=== PATIENT | female | born 1960 | race Caucasian/White ===

== ENCOUNTER 2019-11-23 08:30 | Day surgery (SDC) | payer OTHER, BC ==
[2019-11-19 11:24] VITALS: BMI 27.3
[2019-11-23] MEDS ORDERED: MIDAZOLAM HCL 2 MG/2 ML SINGLE DOSE VIAL ONE (13:41)
[2019-11-23] MEDS ORDERED: THROMBIN (BOVINE) 5,000 UNIT VIAL TP ONE (14:06)
[2019-11-23] MEDS ORDERED: HEPARIN NA (PORCINE) 5,000 UNITS/ML 1ML VIAL ONE (14:06)
[2019-11-23] MEDS ORDERED: ROCURONIUM BROMIDE 50 MG/5 ML SYRINGE ONE (14:29)
[2019-11-23] MEDS ORDERED: fentaNYL CITRATE 250 MCG/5 ML VIAL ONE (14:29)
[2019-11-23] MEDS ORDERED: PROPOFOL 20 ML ONE ×6 (14:29→16:13)
[2019-11-23] MEDS ORDERED: SUCCINYLCHOLINE CHLORIDE 200 MG/10 ML SYRINGE ONE (14:29)
[2019-11-23] MEDS ORDERED: LIDOCAINE HCL/PF 2% SDV 5ML VIAL ONE ×2 (14:36→15:27)
[2019-11-23] MEDS ORDERED: ceFAZolin SODIUM 1 GM VIAL IVPB ONE ×2 (15:00→20:04)
[2019-11-23] MEDS ORDERED: VANCOMYCIN 1,000 MG VIAL (RESTRICTED TO ID ONLY) IVPB ONE (15:00)
[2019-11-23] MEDS ORDERED: LIDOCAINE HCL 2% JELLY (5 ML/TUBE) ONE (15:27)
[2019-11-23] MEDS ORDERED: ceFAZolin SODIUM 1 GM VIAL ONE ×2 (15:27→19:24)
[2019-11-23] MEDS ORDERED: TRANEXAMIC ACID 1000 MG/10 ML VIAL ONE (15:27)
[2019-11-23] MEDS ORDERED: DEXAMETHASONE SOD PHOSPHATE 4 MG/1 ML VIAL ONE (15:27)
[2019-11-23] MEDS ORDERED: GLYCOPYRROLATE 0.2 MG/1 ML VIAL ONE (15:27)
[2019-11-23] MEDS ORDERED: VANCOMYCIN 1,000 MG VIAL (RESTRICTED TO ID ONLY) ONE (15:27)
[2019-11-23] MEDS ORDERED: BUPIVACAINE LIPOSOME/PF (EXPAREL) 266 MG/20 ML VIAL ONE (15:52)
[2019-11-23] MEDS ORDERED: oxyCODONE HCL 5 MG TABLET PO PRN (16:48)
[2019-11-23] MEDS ORDERED: diazePAM CARPU-JECT 10 MG/2 ML DISP.SYRIN IVPUSH PRN (16:48)
[2019-11-23] MEDS ORDERED: ONDANSETRON 4 MG/2 ML VIAL IVPUSH PRN ×2 (16:48→17:26)
[2019-11-23] MEDS ORDERED: LACTATED RINGERS SOLUTION 1,000 ML IV SCH (17:00)
--- NOTE | 2019-11-23 17:03 | PN ---
Progress Note (short form) - Note Progress Note: 59F s/p removal of proximal thoracic hardware, & inspection of fusion mass POD #0. -Pain control: patient received intra-op paraspinal muscle block w/Exparel & marcaine; OK to use GAME MANAGER if needed; transition to oral analgesia; NSAID's OK. -DVT PPx: -Mechanical only: NICOLÁS's, SCD's. -Chemical: None. -Incentive spirometry q15 min. -Diet as tolerated. -f/u post-op TOV (8 hours max). -Ancef post-op x 3 doses. -PT/OT/Rehab, OOB. -WBAT B/L LE. -Care per medical hospitalist teams. -Discharge planning: f/u 7-10 days after rehab (or hospital) discharge [facility]; call for appointment; . -Will follow. Chun Brown MD (Orthopaedic Surgery).
--- NOTE | 2019-11-23 17:10 | OP ---
Operative Note - Note: Operative Date: 11/23/19 Pre-Operative Diagnosis: Thoracic hardware bursitis Operation: Removal of thoracic hardware. Inspection of fusion mass Post-Operative Diagnosis: Same as Pre-op Surgeon: Chun Brown Lands Resource Manager: Joseluis Brown Anesthesiologist/TALENT COORDINATOR: May Olivier Anesthesia: General Specimens Removed: Proximal thoracic cross link & trimmed rods Estimated Blood Loss (mls): 20 Fluid Volume Replaced (mls): 1,000 (Crystalloid) Operative Report Dictated: Yes
[2019-11-23] MEDS ORDERED: MEPERIDINE HCL 25 MG/ML VIAL ONE (17:35)
[2019-11-23] MEDS ORDERED: MEPERIDINE HCL 25 MG/ML VIAL IVPUSH ONE ×2 (17:38→17:40)
[2019-11-23] MEDS ORDERED: ACETAMINOPHEN INJECTION 100 ML IVPB ONE (17:48)
[2019-11-23] MEDS: ACETAMINOPHEN 1000 MG/100 ML VIAL (NON FORMULARY) IVPB SCH (17:54)
[2019-11-23] MEDS ORDERED: KETOROLAC TROMETHAMINE 30 MG/1 ML VIAL IVPUSH PRN (18:00)
--- NOTE | 2019-11-23 18:27 | OP ---
Date of Operation: 11/23/2019 Pre-Operative Diagnosis: Thoracic spine hardware bursitis. Post-Operative Diagnosis: Thoracic spine hardware bursitis. Procedure Performed: 1. Removal of proximal thoracic hardware. (51823) 2. Inspection of fusion mass. (26401) 3. Complex wound closure, 4 layers, 10cm. (35009 x 2) Surgeon: Chun Brown M.D. Take Away Attendant: Joseluis Brown M.D. Anesthesiologist: May Olivier M.D. Anesthesia: General, Local. Position: Prone. Incision: Midline. Specimens Removed: Proximal thoracic hardware (crosslink, trimmed rods). Drains: 1 x suprafascial HemoVac. Estimated Blood Loss: 20cc. Intravenous Fluid: 1L crystalloid. Transfusions: None. Complications: None. Bacteriology: None. Closure: No. 1 Vicryl, 2-0 Biosyn absorbable sutures. Indications: The patient was indicated for the above listed surgical procedure due to intractable proximal thoracic back pain that limits her mobility and capacity to independently perform routine activities of daily living. The patient was identified in the holding area by her armband. A long discussion was held with the patient regarding the risks, benefits and alternatives of the above-named procedure. The risks include, but are not limited to: pain, bleeding, infection, damage to surrounding structures (including nerves, blood vessels, skin, ligaments, tendons, and bone), nerve palsy, paresthesias, weakness, limp, wound complications, pseudarthrosis, failure of fusion, failure of hardware/implants/reduction, need for further surgery, blood clots, myocardial infarction, pulmonary embolism, cerebrovascular event, anesthesia complications, neurological injury, loss of function, and . Benefits as mentioned above. Alternatives include no surgery. All questions were answered. The patient understood and agreed to the procedure. Informed consent was obtained, witnessed and verified by hospital nursing staff. The patients lumbar spine was marked. The patient was then assessed by the anesthesia team and then taken to the operating room. Procedure: The patient was brought into the operating room. Consent and the operative site were again verified with the patient, the nursing team, the surgical team, and the anesthesiology team. Anesthesia, IV antibiotics, and TXA were then administered without complication. A time out was done, led by me the attending surgeon. An indwelling Wheeler catheter was successfully inserted by the nursing team. The intra-operative neuromonitoring team provided prepositioning baseline motor and sensory readings. The patient was then safely placed in a prone position with all bony prominences well-padded on a Driss frame. The arms were placed on well-padded arm boards and maintained with standard forward flexion, abduction, and external rotation of the shoulders, and flexion of the elbows. Special attention was given to the safe positioning of the cervical spine. The patients eyes, breasts, and belly were all free. The table was placed in 6 degrees of reverse Trendelenburg position to avoid ophthalmic vein congestion. Post-positional motor and sensory readings confirmed no change. No fluoroscopy was used. The skin was prepped in standard, sterile fashion using betadine prep & scrub, wiped off with alcohol, and DuraPrep applied. Standard window draping was utilized, and this included draping of the C-arm. All pre-operative imaging was available throughout the case for intraoperative evaluation. A time-out was repeated, and the case began. The prominent thoracic hardware was localized via palpation. The proximal 10cm of the original midline skin incision was utilized. Using electrocautery, the dissection was carried down through subcutaneous fat and then through the midline of the thoracodorsal fascia down to the prominent hardware. The dissection was carried over a proximal crosslink, which was clearly the most prominent hardware. This crosslink was then successfully removed. The bursal tissue that had formed over the crosslink was excised. The two most proximal thoracic screws were identified. These screws were not prominent. The rods that each of these screws captured were long, as they previously accommodated the now removed crosslink. Each of the rods was trimmed using bolt cutters, leaving 0.5-1cm of david proximal to each of the proximal screws. Screw capture of each david was well maintained. David holding clamps were used to grasp each of the rods and demonstrate the segmental stability of the previously fused proximal thoracic levels. This completed the inspection of the fusion mass. The skin was gently approximated, with no evidence of prominent hardware. Throughout the case, the wound was irrigated with warm normal saline solution to keep the exposed soft tissues hydrated. The retractors were released every 5 minutes to enable adequate blood flow to the soft tissues. These muscles were gently massaged upon release of the retractors to further facilitate blood flow. The local subcutaneous soft tissues were infiltrated with 40cc of analgesic medication (20cc 0.25% marcaine with 20cc Exparel). Closure: The thoracodorsal fascia and underlying paraspinal musculature was closed in the midline using #1 vicryl sutures in simple interrupted fashion. Hemostasis was well maintained, so no drain was used. The wound was repeatedly thoroughly irrigated with normal saline solution. The subcutaneous tissues were closed using #1 Vicryl sutures. The skin was closed using a running 2-0 Biosyn absorbable suture. This completed a 4-layered complex wound closure of approximately 10cm. The skin was then painted with benzoin and Steri-Strips were applied without tension perpendicularly to the incision. A Primapore adhesive Telfa island dressing was applied over the Steri-Strips and a sterile, compressive dressing was applied using 4x4 gauze pads. The skin was painted with DuraPrep. The wound was then sealed with adhesive Ioban. The sponge and needle counts were correct at the end of the case and I, the attending surgeon, was present and scrubbed throughout the case. All neural monitoring leads were removed. The patient was transferred to a hospital bed. The patient was then transferred to the recovery room in stable condition, as per the anesthesia team, having tolerated the procedure well. Overall comment: Operation went extremely well with no complications. All appropriate goals were achieved in this operative event. MD MEG Sanford/[id number] MTDD
--- NOTE | 2019-11-23 19:33 | PN ---
Teaching Attending Note Name of Resident: Dalton Polanco ATTENDING PHYSICIAN STATEMENT I saw and evaluated the patient. I reviewed the resident's note and discussed the case with the resident. I agree with the resident's findings and plan as documented. SUBJECTIVE: 59yoF with h/o scoliosis and benign lung nodule s/p resection, currently POD0 from removal of thoracic spine hardware secondary to bursitis by Dr. Brown. Uncomplicated procedure, received intraop paraspinal muscle block and patient reports pain is currently controlled s/p IV acetaminophen. Tolerated dinner. No acute complaints. OBJECTIVE: Last Vital Signs Temp Pulse Resp BP Pulse Ox 97.5 F L 62 16 132/70 100 11/23/19 17:20 11/23/19 19:20 11/23/19 19:20 11/23/19 19:20 11/23/19 19:20 EXAM Gen: awake, alert, NAD HEENT: NC/AT CV: RRR, no MRG Resp: CTAB, unlabored Abd: Soft, NT, ND. +BS Ext: No peripheral edema Laboratory Results - last 24 hr 11/23/19 08:50 Blood Type B POSITIVE Antibody Screen Negative ASSESSMENT AND PLAN: 59yoF with h/o scoliosis and benign lung nodule s/p resection, currently POD0 from removal of thoracic spine hardware secondary to bursitis by Dr. Brown. s/p removal of thoracic spine hardware Uncomplicated procedure, pain controlled Tolerating PO - Tylenol, NSAID prn for pain - IS - PT/OT - continue Ancef per surgery - outpatient f/u with Dr. Brown 7-10d after rehab DVT ppx: SCD
[2019-11-23] MEDS: CEFAZOLIN 1 GM/D5W 1 GM/50 ML BAG IVPB SCH (20:00)
--- NOTE | 2019-11-23 21:26 | HP ---
CHIEF COMPLAINT: POD0 s/p spinal hardware removal PCP: HISTORY OF PRESENT ILLNESS: Ms. Marinelli is a 59f w a h/o scoliosis, constipation and a benign lung nodule removal in 2007 without complications is admitted to med/surg s/p scoliosis spinal hardware removal. The patient reports receiving surgery for scolosis correctment surgery with Dr. Og in 2015. The patient was noted to have bursitis and hardware removal was scheduled. The patient is currently POD0 without any complaints. The patient is resting comfortably in bed on NS and is able to tolerate a full diet. The patient reports last BM yesterday. The patient has no further complaints. The surgical site is non bothersome and is bandaged appropriately. Recent Travel: none PAST MEDICAL HISTORY: see above PAST SURGICAL HISTORY: C section uncomplicated, pulmonary nodule removal Social History: Smoking: no Alcohol:no Drugs: no Allergies No Known Allergies Allergy (Verified 11/23/19 09:09) HOME MEDICATIONS: Home Medications Medication Instructions Recorded NK [No Known Home Medication] 11/19/19 REVIEW OF SYSTEMS CONSTITUTIONAL: Absent: fever, chills, diaphoresis, generalized weakness, malaise, loss of appetite, weight change HEENT: Absent: rhinorrhea, nasal congestion, throat pain, throat swelling, difficulty swallowing, mouth swelling, ear pain, eye pain, visual changes CARDIOVASCULAR: Absent: chest pain, syncope, palpitations, irregular heart rate, lightheadedness, peripheral edema RESPIRATORY: Absent: cough, shortness of breath, dyspnea with exertion, orthopnea, wheezing, stridor, hemoptysis GENITOURINARY: Absent: dysuria, frequency, urgency, hesitancy, hematuria, flank pain, genital pain PHYSICAL EXAMINATION Vital Signs - 24 hr 11/23/19 11/23/19 11/23/19 09:03 17:06 17:20 Temperature 97.1 F L 97.5 F L 97.5 F L Pulse Rate 61 71 66 Respiratory 16 15 15 Rate Blood Pressure 127/76 154/93 160/94 O2 Sat by Pulse 100 100 100 Oximetry (%) 11/23/19 11/23/19 11/23/19 17:35 17:50 18:05 Temperature Pulse Rate 62 55 L 56 L Respiratory 20 12 12 Rate Blood Pressure 159/93 153/77 136/73 O2 Sat by Pulse 100 100 100 Oximetry (%) 11/23/19 11/23/1911/22/20 18:20 18:35 18:50 Temperature Pulse Rate 56 L 60 65 Respiratory 12 12 13 Rate Blood Pressure 133/72 129/77 128/77 O2 Sat by Pulse 100 100 100 Oximetry (%) 11/23/19 11/23/19 11/23/19 19:05 19:20 19:30 Temperature 98.0 F Pulse Rate 59 L 62 60 Respiratory 14 16 18 Rate Blood Pressure 143/77 132/70 132/71 O2 Sat by Pulse 100 100 100 Oximetry (%) GENERAL: Awake, alert, and fully oriented, in no acute distress. HEAD: Normal with no signs of trauma. LUNGS: Breath sounds equal, clear to auscultation bilaterally. No wheezes, and no crackles. No accessory muscle use. HEART: Regular rate and rhythm, normal S1 and S2 without murmur, rub or gallop. ABDOMEN: Soft, nontender, not distended, normoactive bowel sounds, no guarding, no rebound, no masses. No hepatomegaly or splenomegaly. UPPER EXTREMITIES: 2+ pulses, warm, well-perfused. No cyanosis. No clubbing. No peripheral edema. LOWER EXTREMITIES: 2+ pulses, warm, well-perfused. No calf tenderness. No peripheral edema. Laboratory Results - last 24 hr 11/23/19 08:50 Blood Type B POSITIVE Antibody Screen Negative ASSESSMENT/PLAN: Ms. Marinelli is a 59f w a h/o scoliosis, constipation and a benign lung nodule removal in 2007 without complications is admitted to med/surg s/p scoliosis spinal hardware removal. #POD0 hardware removal secondary to bursitis patient will be admitted to med/surg will monitor for post op fever will monitor for pain sx cbc cmp monitor BM will follow up outpatient with Dr. Og within 1 week #FEN full diet will watch for BM if constipated then pt will receive miralax #DVT ppx SCDs Family Medical History Family History: As Documented Visit type - Emergency Visit Emergency Visit: No - New Patient This patient is new to me today: Yes Date on this admission: 11/24/19 - Critical Care Critical Care patient: No ATTENDING PHYSICIAN STATEMENT I saw and evaluated the patient. I reviewed the resident's note and discussed the case with the resident. I agree with the resident's findings and plan as documented. SUBJECTIVE: OBJECTIVE: ASSESSMENT AND PLAN:
[2019-11-24] MEDS: ACETAMINOPHEN 1000 MG/100 ML VIAL (NON FORMULARY) IVPB SCH ×2 (01:53→08:29)
[2019-11-24] MEDS ORDERED: DEXTROSE 5%-WATER - 50 ML IVPB ONE ×2 (02:25→08:25)
[2019-11-24] MEDS ORDERED: ceFAZolin SODIUM 1 GM VIAL ONE ×2 (02:25→08:25)
[2019-11-24] MEDS: CEFAZOLIN 1 GM/D5W 1 GM/50 ML BAG IVPB SCH (02:28)
[2019-11-24] MEDS: CEFAZOLIN 1 GM in DEXTROSE 5%-WATER - 50 ML IVPB SCH ×2 (02:28→08:28)
[2019-11-24 07:36] LABS: HEMATOCRIT 38.2 % (32.4-45.2); HEMOGLOBIN 12.8 GM/dL (10.7-15.3); MCH 26.9 pg (25.7-33.7); MCHC 33.7 g/dl (32.0-36.0); MEAN CELL VOLUME 79.9 fl (80-96); MEAN PLT VOLUME 7.8 fl (7.5-11.1); PLATELET COUNT 300 K/MM3 (134-434); RBC 4.78 M/mm3 (3.60-5.2); RDW 13.6 % (11.6-15.6); WHITE BLOOD COUNT 10.5 K/mm3 (4.0-10.0)
[2019-11-24 08:09] LABS: BLOOD UREA NITROGEN 11.4 mg/dL (7-18); CALCIUM 9.2 mg/dL (8.5-10.1); CREATININE 0.8 mg/dL (0.55-1.3); POTASSIUM 4.2 mmol/L (3.5-5.1)
--- NOTE | 2019-11-24 13:19 | PN ---
Progress Note (short form) - Note Progress Note: NEUROSURGERY SPINE (COVERAGE FOR DR. ROSALVA BROWN) Patient is doing very well one day status post removal of hardware. Patient is cleared for discharge. Case reviewed with Dr. Rosalva Brown who agrees.
--- NOTE | 2019-11-24 15:04 | DS ---
Physical Exam: SUBJECTIVE: Patient seen and examined at bedside. No acute events reported overnight. Patient has no pain today. OBJECTIVE: Vital Signs Period Temp Pulse Resp BP Sys/Barone Pulse Ox Last 24 Hr 97.5 F-98.0 F 55-71 12-20 127-160/70-94 96-100 PHYSICAL EXAM GENERAL: AAOx3, in no acute distress HEENT: NCAT, PERRLA, EOMI, sclera anicteric, conjunctiva clear, oropharynx clear w/o exudates. MMM. NECK: Normal ROM, supple, no lymphadenopathy, JVD, or masses LUNGS: CTABL no wheezes/ rhonchi/ rales. No distress, speaks in full sentences. No increased work of breathing. HEART: RRR, normal S1 S2, no M/R/G, peripheral pulses 2+ and equal b/l ABDOMEN: Soft, NTND, + BS. No guarding or rebound. No hepatomegaly or splenomegaly. MSK: ROM WNL EXTREMITIES: Normal inspection. No peripheral edema. No clubbing or cyanosis. NEUROLOGICAL: CN II-XII intact. Normal speech. SKIN: Warm, Dry, normal turgor, no rashes or lesions noted. dressing on patient's back LABS Laboratory Results - last 24 hr CBC, BMP 11/24/19 07:15 11/24/19 07:15 11/24/19 11/24/19 07:15 07:15 WBC 10.5 H RBC 4.78 Hgb 12.8 Hct 38.2 MCV 79.9 L MCH 26.9 MCHC 33.7 RDW 13.6 Plt Count 300 MPV 7.8 Sodium 141 Potassium 4.2 Chloride 106 Carbon Dioxide 29 Anion Gap 5 L BUN 11.4 Creatinine 0.8 Est GFR (CKD-EPI)AfAm 94.85 Est GFR (CKD-EPI)NonAf 81.84 Random Glucose 82 Calcium 9.2 HOSPITAL COURSE: 59 y/o F with PMX of scoliosis, constipation and a benign lung nodule that was removed in 2007 who was admitted s/p scoliosis spinal hardware removal. Patient tolerated the procedure well and had no post op complaints. Patient was able to walk with PT on the day of her discharge and was discharged to her home with Oxycodone by the surgical team with outpatient followup with Dr. Brown. Date of Admission:11/23/19 11/24/19-T spine x-ray-4 views of the thoracic and lumbar spine reveal scoliosis with convexity to the right, degenerative changes with wedging, loss of bone density extensive spinal fusion hardware from the upper thoracic spine through L3. Date of Discharge: 11/24/19 Minutes to complete discharge: 36 Discharge Summary Problems reviewed: Yes Reason For Visit: FUSION OF SPINE Condition: Stable - Instructions Diet, Activity, Other Instructions: Your visit: You were admitted to the hospital for back surgery with Dr. Brown. You had a muscle block to assist with pain. Medications: -Pain medications provided by your surgeon as needed. You may take NSAIDS as needed for pain. -Continue to take your other home medications as prescribed. Follow up: - Please follow-up with your Orthopedic Surgeon, Dr. Brown in 7-10 days after hospital discharge at [facility] office; call for appointment; - Visit with your Primary Care Provider in 2 weeks. If you do not have a primary care provider you may make an appointment with Dr. Buckley at the [facility] clinic located at [address] [place] [address] ([phone]). Additional Instructions: -You are being discharged to your home. -Keep surgical dressing clean and dry. -Please return to the Emergency Department if you experience worsening pain, fevers, chills, shortness of breath, or chest pain, or if you experience any worsening, new or concerning symptoms. Referrals: Ronn Jessica MD [Staff Physician] - 2 Weeks Chun Brown MD [Staff Physician] - 1 Week Disposition: VNS/HOME HEALTH CARE - Home Medications Comprehensive Discharge Medication List: Ambulatory Orders NK [No Known Home Medication] 11/19/19 This patient is new to me today: Yes Date on this admission: 11/24/19 Emergency Visit: No Critical Care patient: No - Discharge Referral Referred to [facility] Med [facility].C[facility] No ATTENDING PHYSICIAN STATEMENT I saw and evaluated the patient. I reviewed the resident's note and discussed the case with the resident. I agree with the resident's findings and plan as documented. SUBJECTIVE: OBJECTIVE: ASSESSMENT AND PLAN:
[2019-11-24 15:27] VITALS: BP 119/74; PULSE 90; TEMP 98.1
--- NOTE | 2019-11-24 19:09 | PN ---
Teaching Attending Note Name of Resident: Tano Castaneda ATTENDING PHYSICIAN STATEMENT I saw and evaluated the patient. I reviewed the resident's note and discussed the case with the resident. I agree with the resident's findings and plan as documented. SUBJECTIVE: Pain well controlled, no complaints. Walking with cane. No limb numbness/weakness/tingling. OBJECTIVE: Afebrile, hemodynamically Stable Last Vital Signs Temp Pulse Resp BP Pulse Ox 98.1 F 90 20 119/74 98 11/24/19 14:00 11/24/19 14:00 11/24/19 14:00 11/24/19 14:00 11/24/19 14:00 HEENT - Atraumatic, Normocephalic. Heart - S1, S2, RRR Lungs - clear to auscultation Abdomen - Soft, non-tender. Bowel Sounds normal. Extremities - no edema, no calf tenderness. Neuro - AAO x 3. Tone/Power normal all extremities. Sensation intact. MS - Spinal Surgical site dressed - Dressings clean, dry, intact. Laboratory Results - last 24 hr 11/24/19 11/24/19 07:15 07:15 WBC 10.5 H RBC 4.78 Hgb 12.8 Hct 38.2 MCV 79.9 L MCH 26.9 MCHC 33.7 RDW 13.6 Plt Count 300 MPV 7.8 Sodium 141 Potassium 4.2 Chloride 106 Carbon Dioxide 29 Anion Gap 5 L BUN 11.4 Creatinine 0.8 Est GFR (CKD-EPI)AfAm 94.85 Est GFR (CKD-EPI)NonAf 81.84 Random Glucose 82 Calcium 9.2 Home Medications Medication Instructions Recorded Oxycodone HCl [Oxaydo] 5 mg PO TID PRN #30 tablet.orl MDD 11/24/19 4 ASSESSMENT AND PLAN: 59 year old female with history of Scoliosis s/p Spinal Surgery with hardware in situ, Benign lung nodule s/p resection, admitted to medicine service s/p removal of thoracic spine hardware secondary to bursitis by Dr. Brown, with intra-operative paraspinal muscle block Thoracic Spine Hardware associated Bursitis POD 1 s/p removal of thoracic spine hardware Pain well controlled No neurological deficit Ambulating well Surgically cleared for discharge with Spinal Surgery follow up in 7-10days Home PT
--- NOTE | 2019-11-25 18:50 | PATH ---
Surgical Pathology Report Patient Name: FAIZA DUPONT Med. Rec. #: [id number] /Age/Gender: 1960 (Age: 59) / F Account: [id number] Location: [facility] SURGICAL Taken: 11/23/2019 Received: 11/24/2019 Reported: 11/25/2019 Physicians: Joseluis Brown M.D. Specimen(s) Received HARDWARE Clinical History Fusion of spine Final Diagnosis HARDWARE, REMOVAL: SURGICAL HARDWARE. MACROSCOPIC DIAGNOSIS. Electronically Signed Yamila Elena M.D. Gross Description Received fresh labeled "hardware," is a 6 cm in greatest dimension yellow metallic clamp-like portion of hardware. Also received within the same container are 2 gil metallic, non-intact portions of a ehsan measuring 0.8 and 1.7 cm in length. No soft tissue is present. No sections are submitted, gross only. /11/24/2019 saudi/11/24/2019
== END 2019-11-24 17:51 | disposition home health service (06) ==
LOC: SUATTDRO 08:30 → JASU-SURG 08:30 → J8W 19:56 → JASU-SURG 11-24 17:51
PROC: 0RPA04Z Removal of Internal Fixation Device from Thoracolumbar Vertebral Joint, Open Approach (ICD-10-PCS; principal; 2019-11-23 11:25)
DX: T84.84XA Pain due to internal orthopedic prosthetic devices, implants and grafts, initial encounter (principal)
CPT/HCPCS: 36415; 72070-TC-FY; 80048; 85027; 86850; 86900; 86901; 88300-TC; 94760; 97116-GP; 97161-GP; J0131; J1644

== ENCOUNTER 2020-12-12 04:19 | Inpatient (IN) | payer OTHER, BC ==
[2020-12-09 14:46] VITALS: BMI 26.7
[2020-12-12] MEDS ORDERED: THROMBIN (BOVINE) 5,000 UNIT VIAL TP ONE ×2 (14:36→17:43)
[2020-12-12] MEDS ORDERED: GENTAMICIN SO4 80 MG/2 ML VIAL ONE (14:36)
[2020-12-12] MEDS ORDERED: PROPOFOL 20 ML ONE (16:26)
[2020-12-12] MEDS ORDERED: MIDAZOLAM HCL 2 MG/2 ML SINGLE DOSE VIAL ONE (16:26)
[2020-12-12] MEDS ORDERED: ROCURONIUM BROMIDE 50 MG/5 ML SYRINGE ONE (16:26)
[2020-12-12] MEDS ORDERED: ceFAZolin SODIUM 1 GM VIAL IVPB ONE (17:10)
[2020-12-12] MEDS ORDERED: DEXAMETHASONE SOD PHOSPHATE 10 MG/1 ML VIAL ONE (17:14)
[2020-12-12] MEDS ORDERED: VANCOMYCIN 1,000 MG VIAL (RESTRICTED TO ID ONLY) IVPB ONE (17:15)
[2020-12-12] MEDS ORDERED: LIDOCAINE 1%/EPI 1:100000 (50 ML MULTI DOSE VIAL) PNB ONE (17:33)
[2020-12-12] MEDS ORDERED: GENTAMICIN 80MG PREMIX BAG IVPB ONE (17:43)
[2020-12-12] MEDS ORDERED: GELATIN, ABSORBABLE 12-7MM EACH SPONGE TP ONE (17:43)
[2020-12-12] MEDS ORDERED: ONDANSETRON 4 MG/2 ML VIAL ONE (18:24)
[2020-12-12] MEDS ORDERED: NEOSTIGMINE METHYLSULFATE 0.5 MG/1 ML - 10 ML MDV ONE (18:24)
[2020-12-12] MEDS ORDERED: ceFAZolin SODIUM 1 GM VIAL ONE (18:24)
[2020-12-12] MEDS ORDERED: GLYCOPYRROLATE 0.2 MG/1 ML VIAL ONE (18:24)
[2020-12-12] MEDS ORDERED: VANCOMYCIN 1,000 MG VIAL (RESTRICTED TO ID ONLY) ONE (18:24)
[2020-12-12] MEDS ORDERED: TRANEXAMIC ACID 1000 MG/10 ML VIAL ONE (18:24)
[2020-12-12] MEDS ORDERED: LIDOCAINE HCL/PF 2% SDV 5ML VIAL ONE (18:24)
[2020-12-12] MEDS ORDERED: ONDANSETRON 4 MG/2 ML VIAL IVPUSH PRN ×2 (18:51→18:58)
[2020-12-12] MEDS ORDERED: ACETAMINOPHEN 1000 MG/100 ML VIAL IVPB ONE (18:52)
[2020-12-12] MEDS ORDERED: oxyCODONE HCL 5 MG TABLET PO PRN (18:58)
[2020-12-12] MEDS ORDERED: HYDROmorphone HCl 2 MG/ML VIAL SQ PRN (18:58)
[2020-12-12] MEDS ORDERED: LACTATED RINGERS SOLUTION 1,000 ML IV SCH (19:00)
[2020-12-12] MEDS ORDERED: ACETAMINOPHEN INJECTION 100 ML IVPB ONE (19:15)
[2020-12-12] MEDS: CEFAZOLIN 2 GM in DEXTROSE 5%-WATER - 100 ML IVPB SCH (22:26)
[2020-12-13] MEDS: CEFAZOLIN 2 GM in DEXTROSE 5%-WATER - 100 ML IVPB SCH ×2 (04:45→11:10)
[2020-12-13] MEDS: ACETAMINOPHEN 500 MG TABLET (FP) PO PRN ×3 (09:07→21:54)
[2020-12-13 09:52] LABS: HEMATOCRIT 38.9 % (32.4-45.2); MCH 27.3 pg (25.7-33.7); MCHC 33.6 g/dl (32.0-36.0); MEAN CELL VOLUME 81.5 fl (80-96); MEAN PLT VOLUME 8.1 fl (7.5-11.1); PLATELET COUNT 319 10^3/uL (134-434); RBC 4.77 M/mm3 (3.60-5.2); RDW 13.6 % (11.6-15.6); WHITE BLOOD COUNT 10.8 K/mm3 (4.0-10.0)
[2020-12-13 10:22] LABS: CALCIUM 9.4 mg/dL (8.5-10.1)
[2020-12-13 10:23] LABS: ALBUMIN 3.4 g/dl (3.4-5.0); BLOOD UREA NITROGEN 8.5 mg/dL (7-18); MAGNESIUM 1.6 mg/dL (1.8-2.4)
[2020-12-13 10:26] LABS: PHOSPHOROUS 3.9 mg/dL (2.5-4.9)
[2020-12-13 10:27] LABS: BILIRUBIN,TOTAL 0.8 mg/dL (0.2-1); CREATININE 1.1 mg/dL (0.55-1.3)
[2020-12-13 10:28] LABS: TOT PROT 6.5 g/dl (6.4-8.2)
[2020-12-13] MEDS ORDERED: MELATONIN 5 MG TABLETS PO PRN (22:00)
[2020-12-14] MEDS: oxyCODONE HCL 5 MG TABLET PO PRN ×2 (00:01→04:47)
[2020-12-14] MEDS: ACETAMINOPHEN 500 MG TABLET (FP) PO PRN (06:11)
[2020-12-14] MEDS ORDERED: IBUPROFEN 400 MG TABLET (FP) PO ONE (08:42)
[2020-12-14 08:58] LABS: HEMATOCRIT 37.5 % (32.4-45.2); HEMOGLOBIN 12.7 GM/dL (10.7-15.3); MCH 27.1 pg (25.7-33.7); MCHC 33.8 g/dl (32.0-36.0); MEAN CELL VOLUME 80.1 fl (80-96); MEAN PLT VOLUME 8.1 fl (7.5-11.1); PLATELET COUNT 306 10^3/uL (134-434); RBC 4.68 M/mm3 (3.60-5.2); RDW 13.9 % (11.6-15.6); WHITE BLOOD COUNT 7.9 K/mm3 (4.0-10.0)
[2020-12-14 09:42] LABS: ALBUMIN 3.2 g/dl (3.4-5.0)
[2020-12-14 09:44] LABS: CALCIUM 8.5 mg/dL (8.5-10.1)
[2020-12-14 09:45] LABS: CREATININE 0.6 mg/dL (0.55-1.3); MAGNESIUM 1.9 mg/dL (1.8-2.4)
[2020-12-14 09:46] LABS: BILIRUBIN,TOTAL 0.8 mg/dL (0.2-1); TOT PROT 6.2 g/dl (6.4-8.2)
[2020-12-14 09:48] LABS: PHOSPHOROUS 2.8 mg/dL (2.5-4.9)
[2020-12-14] MEDS ORDERED: DOCUSATE SODIUM 100 MG CAPSULE (FP) PO SCH (10:00)
[2020-12-14 14:18] VITALS: BP 120/65; PULSE 77; TEMP 98.2
== END 2020-12-14 15:39 | disposition home or self-care (01) | DRG 473 ==
LOC: J2C 04:19 → J6S 21:14
PROVIDERS: ADMIT Orthopaedic Surgery Orthopaedic Surgery of the Spine; ATTEND Internal Medicine
PROC: 0RB30ZZ Excision of Cervical Vertebral Disc, Open Approach (ICD-10-PCS; 2020-12-12)
PROC: 01N10ZZ Release Cervical Nerve, Open Approach (ICD-10-PCS; 2020-12-12)
PROC: 0RG10A0 Fusion of Cervical Vertebral Joint with Interbody Fusion Device, Anterior Approach, Anterior Column, Open Approach (ICD-10-PCS; principal; 2020-12-12 15:00)
DX: M47.12 Other spondylosis with myelopathy, cervical region (principal); M47.22 Other spondylosis with radiculopathy, cervical region; M48.02 Spinal stenosis, cervical region; M40.202 Unspecified kyphosis, cervical region; M53.2X2 Spinal instabilities, cervical region
CPT/HCPCS: 36415; 72125-TC; 76000-TC-FY; 80053; 83735; 84100; 85027; 86850; 86900; 86901; 94760; 97116-GP; 97162-GP; C9803; J0131; J1100; U0003; U0005